=== PATIENT | male | born 1950 | race Caucasian/White ===

== ENCOUNTER → 2017-12-01 12:25 | Outpatient (CLI) | payer MEDICARE, MEDICAID, SELFPAY ==
--- NOTE | 2017-12-01 | DI.RAD.S_ITS ---
PROCEDURE: XR LUMBAR SPINE 2-3V INDICATIONS: LUMBAR SPINE PAIN TECHNIQUE: 3 views of the lumbar spine were acquired. COMPARISON: None. FINDINGS: Bones: 5 [id number] vertebrae are present. There is grade 1-2 anterolisthesis of L4 on L5. No vertebral body compression fractures. No suspicious bony lesions. Degenerative disc disease is present, severe at L5-S1, moderate at L3-L4 and L4-L5. There is severe facet arthropathy at L4-L5 and L5-S1. Osteopenia. Soft tissues: Overlying bowel gas pattern is normal. No suspicious soft tissue calcifications. IMPRESSION: 1. Severe degenerative disc and facet disease in lumbar spine. 2. Osteopenia. Dictated by: Pato Jones M.D. on 12/01/2017 at 17:55 Approved by: Pato Jones M.D. on 12/02/2017 at 10:01
--- NOTE | 2017-12-01 | DI.RAD.S_ITS ---
PROCEDURE: XR THORACIC SPINE 3V INDICATIONS: THORACIC PAIN TECHNIQUE: 3 views of the thoracic spine were acquired. COMPARISON: [facility], CR, XR LUMBAR SPINE 2-3V, 12/01/2017, 12:15. FINDINGS: Bones: Mild levo scoliosis. Mild loss of vertebral body height of T8. No suspicious bony lesions. There is mild degenerative disc disease scattered in the thoracic spine. 12 pairs of ribs are noted, and appear intact where visualized. Soft tissues: No paravertebral stripe thickening. There is a large hiatal hernia. IMPRESSION: 1. Mild compression deformity of T8. If clinical symptoms is acute, MRI is suggested for further evaluation. 2. levoscoliosis. L. Mild degenerative disc changes in thoracic spine. 4. Large hiatal hernia. Dictated by: Pato Jones M.D. on 12/01/2017 at 17:54 Approved by: Pato Jones M.D. on 12/02/2017 at 10:00
== END ==
PROVIDERS: Visit Provider Physician Assistant
DX: M51.36 Other intervertebral disc degeneration, lumbar region (principal); M54.5 Low back pain; M51.37 Other intervertebral disc degeneration, lumbosacral region; M51.34 Other intervertebral disc degeneration, thoracic region; M47.816 Spondylosis without myelopathy or radiculopathy, lumbar region; M47.817 Spondylosis without myelopathy or radiculopathy, lumbosacral region; M85.88 Other specified disorders of bone density and structure, other site; M41.84 Other forms of scoliosis, thoracic region; K44.9 Diaphragmatic hernia without obstruction or gangrene
CPT/HCPCS: 72072; 72100

== ENCOUNTER → 2018-01-11 10:46 | Outpatient (CLI) | payer MEDICARE, MEDICAID, SELFPAY ==
--- NOTE | 2018-01-11 10:50 | DI.MRI.S_ITS ---
PROCEDURE: MR LUMBAR SPINE WO CON INDICATIONS: COMPRESSION DEFORMITY TECHNIQUE: Noncontrast sagittal T1 spin echo and T2 fast echo, sagittal STIR, axial T1 and T2 fast spin echo through the lumbar spine. In cases with scoliosis, additional coronal T2 fast spin echo may be performed. COMPARISON: None. FINDINGS: Image quality: Excellent. Alignment and Curvature: Grade 1 anterolisthesis of L4 and L5. Trace anterolisthesis of L3 on L4.. Bone Marrow: Marrow is of normal overall signal. No acute vertebral body compression fractures. Spinal Cord: Conus medullaris terminates at the L1-L2 level. Visualized cord demonstrates normal signal and size. Paraspinous Soft Tissues: Large abdominal aortic aneurysm measuring at least 6.7 x 4.0 cm although not entirely included on exam [id number]. Numerous T2 hyperintense bilateral renal lesions presumably cysts although technically nonspecific L1-L2: Normal appearance. L2-L3: Normal appearance. L3-L4: Broad-based posterior disc bulge and bilateral facet arthropathy. Moderate canal stenosis. Effacement of the lateral recesses bilaterally although there is symmetric appearance. Moderate left and right foraminal narrowing.. L4-L5: Dorsal epidural lipomatosis is seen. There is severe canal stenosis. Bilateral facet arthropathy and broad-based posterior disc bulge. Partial effacement of both lateral recesses. Moderate left and severe right foraminal stenoses L5-S1: Broad-based posterior disc bulge and posterior annular fissure. Bilateral facet arthropathy. Mild canal stenosis. Mild effacement of both lateral recesses, with symmetric appearance. Moderate right and left foraminal narrowing. IMPRESSION: Large abdominal aortic aneurysm incidentally noted. Based on size, surgical referral is recommended. This was personally telephoned and discussed with the patient's referring clinician Genoveva OGDEN on 01/11/18. Lower lumbar degenerative disc disease, with severe canal stenosis at L4-L5, which is in part due to dorsal epidural lipomatosis. Bilateral foraminal stenoses as detailed above, most severe on the right at L4-L5. Diffuse lateral recess effacement, and L3-4, L4-L5 and L5-S1, although symmetric appearance Dictated by: Filippo Rubalcava M.D. on 01/11/2018 at 14:45 Approved by: Filippo Rubalcava M.D. on 01/11/2018 at 15:45
--- NOTE | 2018-01-11 10:50 | DI.MRI.S_ITS ---
PROCEDURE: MR THORACIC SPINE WO CON INDICATIONS: COMPRESSION DEFORMITY TECHNIQUE: Noncontrast sagittal T1 spine echo and T2 fast spin echo, sagittal STIR, axial T1 and T2 fast spin echo through the thoracic spine. COMPARISON: [facility], , MR LUMBAR SPINE WO CON, 01/11/2018, 12:59. FINDINGS: Image quality: Excellent. Alignment and Curvature: There is normal bony alignment. Bone Marrow: Marrow is of normal overall signal. No acute vertebral body compression fractures. There is lower cervical disc degeneration Spinal Cord: Visualized spinal cord is normal in size and signal. Paraspinous Soft Tissues: No paravertebral masses. Multiple bilateral presumed renal cysts although some of these are too small to characterize accurately. There is a large aortic aneurysm measuring approximately 5.5 x 5.5 cm Miscellaneous: On axial images, central canal and foramina appear widely patent at all scanned levels. IMPRESSION: No evidence of compression fracture. Mild height loss involving the T8 vertebral body however this could be physiologic. No associated marrow edema. Large abdominal aortic aneurysm. Recommend further evaluation with dedicated CT, and based on size, surgical referral is indicated. Dictated by: Filippo Rubalcava M.D. on 01/11/2018 at 14:03 Approved by: Filippo Rubalcava M.D. on 01/11/2018 at 14:41
== END ==
PROVIDERS: Visit Provider Physician Assistant
DX: M43.9 Deforming dorsopathy, unspecified (principal); I71.4 Abdominal aortic aneurysm, without rupture; M54.5 Low back pain; R29.890 Loss of height; M51.36 Other intervertebral disc degeneration, lumbar region; M48.061 Spinal stenosis, lumbar region without neurogenic claudication; E88.2 Lipomatosis, not elsewhere classified
CPT/HCPCS: 72146; 72148

== ENCOUNTER → 2018-01-18 08:40 | Outpatient (CLI) | payer MEDICARE, MEDICAID, SELFPAY ==
--- NOTE | 2018-01-18 | DI.CT.S_ITS ---
PROCEDURE: CT ANGIO ABDOMEN INDICATIONS: Abdominal aortic aneurysm, without rupture TECHNIQUE: After the administration of intravenous contrast, 2.5 mm thick sections acquired from the diaphragm to the symphysis. 10 mm maximum-intensity projection (MIP) reformats were then acquired. For radiation dose reduction, the following was used: automated exposure control. COMPARISON: [facility], MR, MR LUMBAR SPINE WO CON, 01/11/2018, 12:59. FINDINGS: Image quality: Excellent. Aorta: There is a long segmental area of aneurysmal dilatation of the aorta involving the infrarenal aorta into the aortic bifurcation, measuring up to 6.5 x 7.0 cm in maximal axial dimension superiorly and 6.5 cm in maximal axial dimension just above the bifurcation. Eccentric thrombus within the aneurysm is relatively prominent but the lumen is not narrowed to a hemodynamically significant degree in the area of maximal eccentric mural thrombus inferiorly. There is no sign of perianeurysmal fibrosis or aneurysm leak. No pseudoaneurysm is found. Mesenteric arteries: Celiac trunk, superior and inferior mesenteric arteries appear patent. Right pelvic arteries: Maximal axial dimension at the right common iliac artery of 9 mm. The right external iliac artery appears occluded by calcified atherosclerotic plaquing virtually at its origin. Left pelvic arteries: Maximal axial dimension of the left common iliac artery is 1.3 cm. And the left external iliac artery appears patent at its origin. Extravascular soft tissues: Lung bases are clear, emphysematous change is suspected. Heart size is normal. There is a large hiatal hernia behind the heart. Liver is normal in size and enhancement. Gallbladder appears normal. Biliary system is non dilated. Pancreas enhances normally. Spleen is normal in size and enhancement. No adrenal nodules. Kidneys are normal in size and enhancement, without hydronephrosis. There is renal cortical thinning bilaterally. There is an 8mm exophytic rounded structure at the posterior border of the left kidney middle third which appears higher in density than water, 13-14 Hounsfield units. An exophytic water density cyst is projecting inferiorly from the lower third of the left kidney. Non opacified bowel loops are normal in wall thickness and caliber. No free fluid or air. No retroperitoneal or mesenteric adenopathy. No ventral hernias. No suspicious bony lesions. No vertebral body compression fractures. IMPRESSION: 1. Large abdominal aortic aneurysm extending from the inferior margin of the renal arteries into the aortic bifurcation. This measures up to 7.0 cm in maximal axial dimension, shows no sign of perianeurysmal fibrosis or aneurysm leak, and vascular surgical consultation is recommended electively given the potential risk of spontaneous rupture of this aneurysm. 2. 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 3. Suspect COPD/emphysema. Large hiatal hernia behind the heart. 4. Renal cortical thinning bilaterally. Small 8mm rounded exophytic structure projecting from the posterior border of the left kidney is likely a proteinaceous cyst but followup attention to this area on subsequent CT or ultrasound studies is recommended to establish stability of size over time. Dictated by: Linus Chairez M.D. on 01/18/2018 at 9:22 Approved by: Linus Chairez M.D. on 01/18/2018 at 9:38
== END ==
PROVIDERS: Visit Provider Physician Assistant
DX: I71.4 Abdominal aortic aneurysm, without rupture (principal); K44.9 Diaphragmatic hernia without obstruction or gangrene; I74.5 Embolism and thrombosis of iliac artery
CPT/HCPCS: 74175; Q9967

== ENCOUNTER 2019-03-29 15:18 | Emergency (ER) | payer MEDICARE, MEDICAID, SELFPAY ==
[2019-03-29 15:23] VITALS: BP 168/82; PULSE 67; RESP 16; TEMP 36.4; O2SAT 99; BMI 24.7
[2019-03-29 15:57] LABS: Add Manual Diff / Slide Review NO; Basophils Absolute Auto 100 /uL (0-100); Basophils Percent Auto 0.9 % (0-2); Eosinophils Absolute Auto 200 /uL (0-450); Eosinophils Percent Auto 1.9 % (2-4); Hematocrit 37.9 % (41-53); Hemoglobin 12.4 g/dL (13.5-17.5); Lymphocytes Absolute Auto 2500 /uL (1100-4500); Lymphocytes Percent Auto 21.5 % (25-40); Mean Corpuscular HGB Conc 32.8 % (30-36); Mean Corpuscular Hemoglobin 28.2 PG (26-34); Mean Corpuscular Volume 86.1 fL (80-100); Monocytes Absolute Auto 1400 /uL (0-900); Monocytes Percent Auto 12.1 % (3-14); Neutrophils Absolute Auto 7300 /uL (1500-7000); Neutrophils Percent Auto 63.6 % (50-75); Platelet Count 245 X10^3/uL (150-400); Red Cell Distribution Width 14.7 % (11.6-14.8); White Blood Cell Count 11.5 X10^3/uL (4.5-11.0)
[2019-03-29 16:05] LABS: INR 1.1 (0.9-1.3); Prothrombin Time 12.4 SECONDS (10.1-12.7)
[2019-03-29 16:07] LABS: PTT Partial Thromboplastin Tim 37 SECONDS (26.4-36.2)
[2019-03-29 16:08] LABS: Alanine Aminotransferase 15 IU/L (<50); Albumin 4.7 g/dL (3.5-5.0); Albumin Globulin Ratio 1.3 (1.0-2.8); Alkaline Phosphatase 77 U/L (38-126); Aspartate Aminotransferase 28 IU/L (17-59); BUN Creatinine Ratio 20.8 (6-22); Bilirubin Total 0.4 mg/dL (0.2-1.3); Blood Urea Nitrogen 83 mg/dL (9-20); Calcium 9.8 mg/dL (8.4-10.2); Carbon Dioxide 22 mmol/L (22-32); Chloride 111 mmol/L (98-107); Estimated Glomerular Filt Rate 14.9 mL/min (>60); Globulin 3.7 g/dL (1.7-4.1); Glucose 110 mg/dL (80-110); HEMOLYSIS < 15 (0-50); Lipase 197 U/L (23-300); Potassium 4.5 mmol/L (3.4-5.1); Sodium 145 mmol/L (137-145); Total Protein 8.4 g/dL (6.3-8.2)
--- NOTE | 2019-03-29 16:24 | DI.US.S_ITS ---
PROCEDURE: US RETROPERITONEAL COMP INDICATIONS: ELEV CR, HX AAA TECHNIQUE: Real-time scanning was performed of the retroperitoneal organs, with image documentation. COMPARISON: None. FINDINGS: Kidneys: Kidneys are normal in size. Right kidney measures 9.4 cm long; left kidney measures 10.8 cm long. Right renal cortical thickness is 1.5 cm; left renal cortical thickness is 1.1 cm. renal cortices are echogenic bilaterally. There are multiple cysts in the right kidney, one of the largest measures 1.6 cm and the other measures 2.0 cm. There is a 9 mm nonobstructing stone. No hydronephrosis. The left kidney demonstrates multiple tiny cysts throughout the cortex. The largest cyst is simple and measures 3.6 x 2.3 x 2.6 cm there are no definite solid masses in either kidney. Pancreas: Not seen. Aorta: The proximal aorta is not well-seen. Mid and distal aorta is normal caliber, though mildly ectatic. Mid aorta measures 2.9 cm and distal aorta measures 2.5 cm in AP diameter. Iliac arteries: Proximal common iliac arteries are normal in caliber at 2.5 cm or less. IVC: Intrahepatic inferior vena cava is patent. Miscellaneous: No free abdominal fluid. Small post void residual at 39 cc. The filled urinary bladder has a volume of 315 cc. Neither ureteral jet was visible. IMPRESSION: 1. The visible abdominal aorta is ectatic, ranging from 2.5-2.9 cm in maximal diameter. 2. 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 3. Echogenic multicystic kidneys suggesting chronic medical renal disease. 4. Nonobstructing 1 mm right intrarenal calcification. 5. Small urinary bladder post void residual. Dictated by: Lien Rowe M.D. on 03/29/2019 at 18:36 Approved by: Lien Rowe M.D. on 03/29/2019 at 18:41
--- NOTE | 2019-03-29 19:17 | ED.ABDPAIN ---
HPI - Abdominal Pain <CALLI Murry - Last Filed: 03/29/19 20:19> General Chief Complaint: Abdominal Pain Stated Complaint: STOMACH PAIN ABDNORMAL BLOOD WORK Time Seen by Provider: 03/29/19 16:07 Source: patient Mode of arrival: Ambulatory Limitations: no limitations History of Present Illness HPI narrative: The patient is a 69-year-old male who presents with a chief complaint of abnormal lab work. He was referred from [facility]. He has history of a AAA repair. He states that he has had a history of kidney issues for the past year since his AAA repair. Lab work shows that his creatinine was 2.65 on August 12 of last year. His creatinine was 3.94 for on 03/24/2019. He complains of generalized abdominal pain over at least a month he denies any fevers nausea vomiting or current diarrhea. He did have a diarrhea episode few weeks ago for 1 day, but states that it self resolved. He states that he is anemic per his lab work, and chart review illustrate a hemoglobin of 12.1 and hematocrit of 37.4 on the of this month. Denies blood in his stool. He states that the clinic found trace blood in his urine Related Data Home Medications Medication Instructions Recorded Confirmed aspirin 81 mg PO DAILY 03/29/19 03/29/19 fentanyl 1 patch TRANSDERMAL Q72H 03/29/19 03/29/19 hydrochlorothiazide 12.5 mg PO DAILY 03/29/19 03/29/19 losartan 50 mg PO DAILY 03/29/19 03/29/19 metoprolol tartrate 25 mg PO BID 03/29/19 03/29/19 oxycodone-acetaminophen [Percocet] 0.5 tab PO Q6H PRN MDD 2 tabs 03/29/19 03/29/19 rosuvastatin 40 mg PO QPM 03/29/19 03/29/19 Allergies Allergy/AdvReac Type Severity Reaction Status Date / Time bupropion [From Wellbutrin] Allergy Severe Dizziness Verified 03/29/19 15:28 tramadol Allergy Severe kidney Verified 03/29/19 15:28 function Review of Systems <CALLI Murry - Last Filed: 03/29/19 20:19> Review of Systems Narrative: GENERAL: Denies chills, fatigue, malaise, fever, sweats. HEENT: Denies sinus pain, ear pain, sore throat, difficulty swallowing, dizziness. RESPIRATORY: Denies dyspnea, cough, wheezing, hemoptysis, sputum. CARDIOVASCULAR: Denies chest pain, palpitations, orthopnea, edema, GASTROINTESTINAL: See HPI :see HPI MUSCULOSKELETAL: denies weakness, joint pain, or bony pain SKIN: Denies rash, skin lesions, or other NEUROLOGIC: Denies weakness, headache, numbness, change in speech, confusion, seizures, incoordination. PSYCHIATRIC: No concerning psychosocial issues. 12 point review of systems is negative except for those stated above Patient History <CALLI Murry - Last Filed: 03/29/19 20:19> Medical History (Updated 03/29/19 @ 20:13 by CALLI Murry) Hypertension (Acute) Surgical History (Updated 03/29/19 @ 20:13 by CALLI Murry) S/P AAA repair (Acute) Substance Use Type: does not use Exam <CALLI Murry - Last Filed: 03/29/19 20:19> Narrative Exam Narrative: GENERAL: This is a well-nourished, well-developed patient, in no acute distress HEAD: Atraumatic. Normocephalic. No temporal or scalp tenderness. EYES: Pupils equal round and reactive. Extraocular motions intact. No scleral icterus. No injection or drainage. ENT: Nose without bleeding, purulent drainage or septal hematoma. Throat without erythema, tonsillar hypertrophy or exudate. Uvula midline. Airway patent. NECK: Trachea midline. No JVD or lymphadenopathy. Supple, nontender, no meningeal signs. CARDIOVASCULAR: Regular rate and rhythm RESPIRATORY: Clear to auscultation. Breath sounds equal bilaterally. No wheezes, rales, or rhonchi. No cough. No increased respiratory effort. No accessory muscle use. GASTROINTESTINAL: Abdomen soft, non-tender, nondistended. No hepato-splenomegaly, or palpable masses. No guarding. EXTREMITIES: No clubbing, cyanosis, or edema. No joint tenderness, effusion, or edema noted. BACK: Nontender without deformity or crepitance. No flank tenderness. NEURO: AOx3. Interactive, age appropriate SKIN: No rash or erythema on visible skin. Postoperative changes noted on abdomen. Initial Vital Signs Initial Vital Signs: Vital Signs Temperature 97.6 F 03/29/19 15:23 Pulse Rate 67 03/29/19 15:23 Respiratory Rate 16 03/29/19 15:23 Blood Pressure 168/82 H 03/29/19 15:23 Pulse Oximetry 99 03/29/19 15:23 <Shruthi Hassan DO - Last Filed: 04/07/19 01:16> Initial Vital Signs Initial Vital Signs: Vital Signs Temperature 97.6 F 03/29/19 15:23 Pulse Rate 67 03/29/19 15:23 Respiratory Rate 16 03/29/19 15:23 Blood Pressure 168/82 H 03/29/19 15:23 Pulse Oximetry 99 03/29/19 15:23 Course <CALLI Murry - Last Filed: 03/29/19 20:19> Orders Ordered: ED Orders 03/29/19 15:36 EKG-12 Lead Stat 03/29/19 15:51 Complete Blood Count AUTO DIFF Stat Comprehensive Metabolic Panel Stat Lipase Stat Partial Thromboplastin Time Stat Prothrombin Time INR Stat 03/29/19 16:24 US retroperitoneal comp Stat Vital Signs Vital signs: Vital Signs - 8 hr 03/29/19 15:23 03/29/19 20:04 Temperature 97.6 F Pulse Rate 67 79 Respiratory Rate 16 20 Blood Pressure 168/82 H 136/75 Pulse Oximetry 99 97 <Shruthi Hassan DO - Last Filed: 04/07/19 01:16> Orders Ordered: ED Orders 03/29/19 15:36 EKG-12 Lead Stat 03/29/19 15:51 Complete Blood Count AUTO DIFF Stat Comprehensive Metabolic Panel Stat Lipase Stat Partial Thromboplastin Time Stat Prothrombin Time INR Stat 03/29/19 16:24 US retroperitoneal comp Stat Vital Signs Vital signs: Vital Signs - 8 hr 03/29/19 15:23 03/29/19 20:04 Temperature 97.6 F Pulse Rate 67 79 Respiratory Rate 16 20 Blood Pressure 168/82 H 136/75 Pulse Oximetry 99 97 MDM - Abdominal Pain <CALLI Murry - Last Filed: 03/29/19 20:19> Lab Data Result diagrams: 03/29/19 15:51 03/29/19 15:51 Labs: Lab Results 03/29/19 03/29/19 03/29/19 Range/Units 15:51 15:51 15:51 WBC 11.5 H (4.5-11.0) X10^3/uL RBC 4.40 L (4.5-5.9) X10^6/uL Hgb 12.4 L (13.5-17.5) g/dL Hct 37.9 L (41-53) % MCV 86.1 (80-100) fL MCH 28.2 (26-34) PG MCHC 32.8 (30-36) % RDW 14.7 (11.6-14.8) % Plt Count 245 (150-400) X10^3/uL Neut % (Auto) 63.6 (50-75) % Lymph % (Auto) 21.5 L (25-40) % [place] % (Auto) 12.1 (3-14) % Eos % (Auto) 1.9 L (2-4) % Baso % (Auto) 0.9 (0-2) % Neut # (Auto) 7300 H (7273-7112) /uL Lymph # (Auto) 2500 (3567-3090) /uL [place] # (Auto) 1400 H (0-900) /uL Eos # (Auto) 200 (0-450) /uL Baso # (Auto) 100 (0-100) /uL PT 12.4 (10.1-12.7) SECONDS INR 1.1 (0.9-1.3) APTT 37 H (26.4-36.2) SECONDS Sodium 145 (137-145) mmol/L Potassium 4.5 (3.4-5.1) mmol/L Chloride 111 H (98-107) mmol/L Carbon Dioxide 22 (22-32) mmol/L BUN 83 H (9-20) mg/dL Creatinine 4.00 H (0.66-1.25) mg/dL Estimated GFR 14.9 L (>60) mL/min BUN/Creatinine Ratio 20.8 (6-22) Glucose 110 (80-110) mg/dL Calcium 9.8 (8.4-10.2) mg/dL Total Bilirubin 0.4 (0.2-1.3) mg/dL AST 28 (17-59) IU/L ALT 15 (<50) IU/L Alkaline Phosphatase 77 (38-126) U/L Total Protein 8.4 H (6.3-8.2) g/dL Albumin 4.7 (3.5-5.0) g/dL Globulin 3.7 (1.7-4.1) g/dL Albumin/Globulin Ratio 1.3 (1.0-2.8) Lipase 197 (23-300) U/L Point of care testing: Urine Dip Bedside Urine Glucose Negative Bedside Urine Bilirubin - Negative Bedside Urine Ketone - Negative Urine Specific [place] 1.025 Bedside Urine Occult Blood - Negative Bedside Urine pH 6.0 Bedside Urine Protein + 30 Bedside Urine Urobilinogen - Negative Bedside Urine Nitrite - Negative Bedside Urine Leukocytes - Negative Esterase Imaging Data US - abdomen: Radiologist's Impression: [address] [address] Ultrasound Report Signed Patient: Armen Knowles#: [id number] : 8Acct:[id number] Age/Sex: 69 / MDate of Service: 03/29/19 Loc: ED Accession Number: [id number] Procedure: US retroperitoneal comp Ordering Provider: Shruthi Bañuelos-BC PROCEDURE: US RETROPERITONEAL COMP INDICATIONS: ELEV CR, HX AAA TECHNIQUE: Real-time scanning was performed of the retroperitoneal organs, with image documentation. COMPARISON: None. FINDINGS: Kidneys: Kidneys are normal in size. Right kidney measures 9.4 cm long; left kidney measures 10.8 cm long. Right renal cortical thickness is 1.5 cm; left renal cortical thickness is 1.1 cm. renal cortices are echogenic bilaterally. There are multiple cysts in the right kidney, one of the largest measures 1.6 cm and the other measures 2.0 cm. There is a 9 mm nonobstructing stone. No hydronephrosis. The left kidney demonstrates multiple tiny cysts throughout the cortex. The largest cyst is simple and measures 3.6 x 2.3 x 2.6 cm there are no definite solid masses in either kidney. Pancreas: Not seen. Aorta: The proximal aorta is not well-seen. Mid and distal aorta is normal caliber, though mildly ectatic. Mid aorta measures 2.9 cm and distal aorta measures 2.5 cm in AP diameter. Iliac arteries: Proximal common iliac arteries are normal in caliber at 2.5 cm or less. IVC: Intrahepatic inferior vena cava is patent. Miscellaneous: No free abdominal fluid. Small post void residual at 39 cc. The filled urinary bladder has a volume of 315 cc. Neither ureteral jet was visible. IMPRESSION: 1. The visible abdominal aorta is ectatic, ranging from 2.5-2.9 cm in maximal diameter. 2. 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 3. Echogenic multicystic kidneys suggesting chronic medical renal disease. 4. Nonobstructing 1 mm right intrarenal calcification. 5. Small urinary bladder post void residual. Dictated by: Lien Rowe M.D. on 03/29/2019 at 18:36 Approved by: Lien Rowe M.D. on 03/29/2019 at 18:41 MDM Narrative Medical decision making narrative: The patient is a 69-year-old male who presents with a chief complaint of abnormal labs from outside provider. Repeat labs at this location do show slight anemia of hemoglobin at 12.5, elevated creatinine of 4. This is been an ongoing issue for the past several months and he has yet to be referred to Nephrology. The patient has no signs of urinary tract infection. Given that I cannot to a CT due to his elevated renal function, I did obtain ultrasound which shows concern of medical renal disease. The patient states that he would like to follow up with Nephrology through [facility] as he has had a surgeries at that location. His images were pushed to [facility], and I spoke with Dr. Snow who states that the patient is appropriate for outpatient follow-up with them, does not need transfer this time. Discussed at length with the patient stopping any nephrotoxic medications including NSAIDs, diuretics etcetera. Patient is okay with this and has no questions or concerns upon discharge. Discussed plan of care with Dr Hassan given patient complexity. Patient has no questions or concerns upon discharge and states understanding of return precautions as well as follow-up care. <Shruthi Hassan, DO - Last Filed: 04/07/19 01:16> Lab Data Labs: Lab Results 03/29/19 03/29/19 03/29/19 Range/Units 15:51 15:51 15:51 WBC 11.5 H (4.5-11.0) X10^3/uL RBC 4.40 L (4.5-5.9) X10^6/uL Hgb 12.4 L (13.5-17.5) g/dL Hct 37.9 L (41-53) % MCV 86.1 (80-100) fL MCH 28.2 (26-34) PG MCHC 32.8 (30-36) % RDW 14.7 (11.6-14.8) % Plt Count 245 (150-400) X10^3/uL Neut % (Auto) 63.6 (50-75) % Lymph % (Auto) 21.5 L (25-40) % [place] % (Auto) 12.1 (3-14) % Eos % (Auto) 1.9 L (2-4) % Baso % (Auto) 0.9 (0-2) % Neut # (Auto) 7300 H (5999-8339) /uL Lymph # (Auto) 2500 (6759-6014) /uL [place] # (Auto) 1400 H (0-900) /uL Eos # (Auto) 200 (0-450) /uL Baso # (Auto) 100 (0-100) /uL PT 12.4 (10.1-12.7) SECONDS INR 1.1 (0.9-1.3) APTT 37 H (26.4-36.2) SECONDS Sodium 145 (137-145) mmol/L Potassium 4.5 (3.4-5.1) mmol/L Chloride 111 H (98-107) mmol/L Carbon Dioxide 22 (22-32) mmol/L BUN 83 H (9-20) mg/dL Creatinine 4.00 H (0.66-1.25) mg/dL Estimated GFR 14.9 L (>60) mL/min BUN/Creatinine Ratio 20.8 (6-22) Glucose 110 (80-110) mg/dL Calcium 9.8 (8.4-10.2) mg/dL Total Bilirubin 0.4 (0.2-1.3) mg/dL AST 28 (17-59) IU/L ALT 15 (<50) IU/L Alkaline Phosphatase 77 (38-126) U/L Total Protein 8.4 H (6.3-8.2) g/dL Albumin 4.7 (3.5-5.0) g/dL Globulin 3.7 (1.7-4.1) g/dL Albumin/Globulin Ratio 1.3 (1.0-2.8) Lipase 197 (23-300) U/L Point of care testing: Urine Dip Bedside Urine Glucose Negative Bedside Urine Bilirubin - Negative Bedside Urine Ketone - Negative Urine Specific [place] 1.025 Bedside Urine Occult Blood - Negative Bedside Urine pH 6.0 Bedside Urine Protein + 30 Bedside Urine Urobilinogen - Negative Bedside Urine Nitrite - Negative Bedside Urine Leukocytes - Negative Esterase Discharge Plan Departure Patient Disposition: Home Clinical Impression: Creatinine elevation Discharge Date/Time: 03/29/19 20:04 Instructions: DI for Kidney Failure Activity Restrictions/Additional Instructions: As discussed, your kidney function has decreased. I spoke with Dr. Snow from [facility] nephrology. Your welcome to follow up with them. You can call them at [phone] In the meantime, please stop all medications that are toxic to kidney such as NSAIDs IUD ibuprofen and Aleve, diuretics etcetera Please come back to the emergency department for any acute concerns Please follow-up with primary care provider as well Prescriptions: No Action losartan 50 mg Tablet 50 mg PO DAILY RF: 0 fentanyl 50 mcg/hr Patch 72 Hour 1 patch TRANSDERMAL Q72H RF: 0 aspirin 81 mg Tablet,Delayed Release (Dr/Ec) 81 mg PO DAILY RF: 0 oxycodone-acetaminophen [Percocet] 2.5-325 mg Tablet 0.5 tab PO Q6H MDD 2 tabs PRN (Reason: pain) RF: 0 rosuvastatin 40 mg Tablet 40 mg PO QPM RF: 0 metoprolol tartrate 25 mg Tablet 25 mg PO BID RF: 0 hydrochlorothiazide 12.5 mg Tablet 12.5 mg PO DAILY RF: 0 Referrals: Genoveva Nava PA-C [Non-Staff] -
[2019-03-29 20:04] VITALS: BP 136/75; PULSE 79; RESP 20; O2SAT 97
--- NOTE | 2019-03-30 11:19 | PC.NURSE ---
pt called states that Dr garcia office wont make them an appt. states they don't have any information. This RN called and spoke with mar and she said they need labs, DI and provider notes. that is being faxed to the office at this time. called pt back and let them know it has been faxed so they can make there appt with dr. garcia, nephrology.
--- NOTE | 2019-03-30 11:23 | PC.NURSE ---
pts records from this visit was faxed to Dr. Smalls's office at [facility] per both doctors and patients request.
== END 2019-03-29 20:04 | disposition home or self-care (01) ==
PROVIDERS: Emergency Medicine; Emergency Provider Nurse Practitioner Family
DX: R79.89 Other specified abnormal findings of blood chemistry (principal); Z86.79 Personal history of other diseases of the circulatory system
CPT/HCPCS: 36415; 76770; 80053; 81003; 83690; 85025; 85610; 85730; 93005; 93010; 99284; 99285

== ENCOUNTER → 2019-06-01 09:06 | Outpatient (CLI) | payer MEDICARE, MEDICAID, SELFPAY ==
--- NOTE | 2019-06-01 | DI.MRI.S_ITS ---
PROCEDURE: MR LUMBAR SPINE WO CON INDICATIONS: Spinal stenosis, lumbar region TECHNIQUE: Noncontrast sagittal T1 spin echo and T2 fast echo, sagittal STIR, axial T1 and T2 fast spin echo through the lumbar spine. In cases with scoliosis, additional coronal T2 fast spin echo may be performed. COMPARISON: [facility], MR, MR LUMBAR SPINE WO CON, 01/11/2018, 12:59. [facility], CR, XR LUMBAR SPINE 2-3V, 12/01/2017, 12:15. [facility], US, US RETROPERITONEAL COMP, 03/29/2019, 17:07. FINDINGS: Image quality: Diagnostic, with note made of motion artifact. Alignment and Curvature: Mild grade 1 anterolisthesis is seen at the L4-L5 level. Associated pars defects are not seen. Bone Marrow: Marrow is of normal overall signal. No acute vertebral body compression fractures. Spinal Cord: Conus medullaris terminates at the L1 level. Visualized cord demonstrates normal signal and size. Paraspinous Soft Tissues: No paravertebral masses. There is partial visualization of the known abdominal aortic aneurysm with an endograft. A 2.5 cm left inferior cyst can be seen, with smaller renal cysts seen elsewhere. T12-L1: Bridging endplate osteophytes are seen. Mild generalized disc bulge is seen. No significant neural foraminal or central canal narrowing can be seen. L1-L2: Normal appearance. L2-L3: The disc height and disk signal are well-preserved. Mild generalized disc bulge is seen. Moderate bilateral neural foraminal narrowing is seen. No significant canal narrowing is seen. These imaging findings have progressed compared to the prior study. L3-L4: Moderate loss of disc height is seen. Loss of disc signal is seen. Moderate disc bulge is seen, with a central disc extrusion, with mild superior migration of the disc material, as on series 2 image 11. At least moderate facet hypertrophy is seen. There is at least moderate bilateral neural foraminal narrowing seen, left worse than right. At least moderate central canal narrowing is seen. Mild progression compared to 2018. L4-L5: The disc height is well-preserved. Loss of disc signal is seen at this level. Moderate disc bulge is seen at this level. Prominent facet hypertrophy is seen. There is moderate to severe right-sided and at least moderate left-sided neural foraminal narrowing seen. There is a degree of compression seen upon the exiting nerve roots. Moderate to severe central canal narrowing is seen. When comparison is made with the prior examination, these findings are similar. L5-S1: Moderate loss of disc height is seen. Loss of disc signal is seen. Moderate disc bulge is seen, with a central disc extrusion, with superior migration of disc material. There is an associated annular fissure, as on series 2 image 10. At least moderate facet hypertrophy is seen. There is at least moderate bilateral neural foraminal narrowing seen, right worse than left. Moderate central canal narrowing is seen. When comparison is made with the prior examination, these findings are similar. IMPRESSION: Multiple levels of cervical spine degenerative change are seen, which are similar to 2018, although mildly progressed at the L2-L3 level and the L3-L4 level. Dictated by: Giovanni Pringle M.D. on 06/01/2019 at 10:31 Approved by: Giovanni Pringle M.D. on 06/01/2019 at 10:39
== END ==
PROVIDERS: PCP Family Medicine; Referring Provider Acupuncturist; Visit Provider Acupuncturist
DX: M48.061 Spinal stenosis, lumbar region without neurogenic claudication (principal); M47.816 Spondylosis without myelopathy or radiculopathy, lumbar region; M43.16 Spondylolisthesis, lumbar region; N28.1 Cyst of kidney, acquired; I71.4 Abdominal aortic aneurysm, without rupture
CPT/HCPCS: 72148

== ENCOUNTER → 2019-09-08 13:22 | Outpatient (CLI) | payer MEDICARE, MEDICAID, SELFPAY ==
--- NOTE | 2019-09-08 | DI.MRI.S_ITS ---
PROCEDURE: MR LUMBAR SPINE WO CON INDICATIONS: Spinal stenosis, lumbar region without neurogenic TECHNIQUE: Noncontrast sagittal T1 spin echo and T2 fast echo, sagittal STIR, axial T1 and T2 fast spin echo through the lumbar spine. In cases with scoliosis, additional coronal T2 fast spin echo may be performed. COMPARISON: [facility], MR, MR LUMBAR SPINE WO CON, 01/11/2018, 12:59. [facility], CR, XR LUMBAR SPINE 2-3V, 12/01/2017, 12:15. [facility], MR, MR LUMBAR SPINE WO CON, 06/01/2019, 10:10. FINDINGS: Image quality: Excellent. Alignment and Curvature: 5 lumbar type vertebral bodies are present by plain film. Mild grade 1 anterolisthesis of L3 on L4 and L4 on L5. Bone Marrow: Marrow is of normal overall signal. No acute vertebral body compression fractures. Spinal Cord: Conus medullaris terminates at the L1-L2 disc space level. Visualized cord demonstrates normal signal and size. Paraspinous Soft Tissues: No paravertebral masses. Incompletely visualized aneurysm of the infrarenal abdominal aorta, measuring at least 41 mm. L1-L2: Mild bilateral facet hypertrophy. No significant canal, nor foraminal stenosis. No change. L2-L3: Mild disc desiccation and diffuse disc bulge. Mild bilateral facet hypertrophy. Mild canal stenosis. Mild bilateral foraminal stenosis. L3-L4: Moderate disc height loss and desiccation. Mild diffuse disc bulge. Mild facet and ligamentum hypertrophy. Mild epidural lipomatosis. Moderate canal stenosis. Moderate subarticular foraminal stenosis bilaterally. No change. L4-L5: Moderate disc height loss and desiccation. Mild diffuse disc bulge. Moderate facet hypertrophy bilaterally. Severe canal stenosis and moderate subarticular foraminal stenosis bilaterally. No change. L5-S1: Severe disc height loss and desiccation. Mild diffuse disc bulge with superimposed central disc extrusion, which extends superiorly within the anterior epidural space. Moderate bilateral facet hypertrophy. Mild canal stenosis. Moderate subarticular foraminal stenosis bilaterally. There is abutment of the right S1 nerve root within the lateral recess, without evidence of associated neural compression, nor deviation. No change. IMPRESSION: 1. Multilevel degenerative disc and facet disease, as well as ligamentum flavum hypertrophy and epidural lipomatosis. 2. Multilevel canal stenoses, worst at L4-L5, where there is severe canal stenosis present. 3. Multilevel foraminal stenoses, worst at L3-L4, L4-L5, and L5-S1, where there are moderate foraminal stenoses. 4. Disc extrusion at L5-S1, which abuts the right S1 nerve root, without associated neural compression, nor deviation. Recommend correlation with clinical symptoms to ascertain relevance of this finding. 5. Infrarenal abdominal aortic aneurysm. Dictated by: Sarita Trinidad M.D. on 09/08/2019 at 15:16 Approved by: Sarita Triniadd M.D. on 09/08/2019 at 15:21
== END ==
PROVIDERS: PCP Family Medicine; Referring Provider Family Medicine; Visit Provider Acupuncturist
DX: M48.061 Spinal stenosis, lumbar region without neurogenic claudication (principal); M48.07 Spinal stenosis, lumbosacral region; M51.36 Other intervertebral disc degeneration, lumbar region; M51.37 Other intervertebral disc degeneration, lumbosacral region; M51.27 Other intervertebral disc displacement, lumbosacral region; E88.2 Lipomatosis, not elsewhere classified; I71.4 Abdominal aortic aneurysm, without rupture
CPT/HCPCS: 72148

== ENCOUNTER → 2019-10-03 12:22 | Outpatient (CLI) | payer MEDICARE, MEDICAID, SELFPAY ==
--- NOTE | 2019-10-03 | DI.US.S_ITS ---
PROCEDURE: US ABD AORTA ANEURYSM SCREEN INDICATIONS: Abdominal aortic aneurysm, without rupture. Prior history of endo stent aortic aneurysm repair. TECHNIQUE: Real time scanning was performed of the aorta and iliac arteries, with image documentation. COMPARISON: [facility], CT, CT ANGIO ABDOMEN, 01/18/2018, 8:52. FINDINGS: Aorta: Proximal aortic diameter measures 3.0 cm. Mid-aorta measures 2.6 cm. Distal aortic diameter is 3.1 cm. Iliac arteries: Right common iliac artery measures 2.5 cm. Left common iliac artery measures 2.7 cm. IMPRESSION: With reference to the prior CT scanning from 01/18/18 the large [id number] abdominal aortic aneurysm has been markedly improved, and at the distal 3rd of the aorta there is only slight aneurysmal dilatation currently measuring 3.1 cm. Please note that this study does not accurately detect endo stent leak and if there is a clinical concern for such abnormality contrast-enhanced CT scanning should be obtained. 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 Dictated by: Linus Chairez M.D. on 10/03/2019 at 13:35 Approved by: Linus Chairez M.D. on 10/03/2019 at 13:46
== END ==
PROVIDERS: PCP Family Medicine; Referring Provider Student in an Organized Health Care Education/Training Program; Visit Provider Student in an Organized Health Care Education/Training Program
DX: I71.4 Abdominal aortic aneurysm, without rupture (principal)
CPT/HCPCS: 76706

== ENCOUNTER → 2020-06-13 09:56 | Outpatient (CLI) | payer MEDICARE, MEDICAID, SELFPAY ==
[2020-06-13 23:30] LABS: BUN Creatinine Ratio 14.2 (6-22); Blood Urea Nitrogen 80 mg/dL (9-20); Calcium 9.4 mg/dL (8.4-10.2); Carbon Dioxide 25 mmol/L (22-32); Chloride 112 mmol/L (98-107); Glucose 99 mg/dL (80-110); HEMOLYSIS < 15 (0-50); Phosphorous 6.3 mg/dL (2.3-3.7); Potassium 4.9 mmol/L (3.4-5.1); Sodium 150 mmol/L (137-145)
[2020-06-13 23:37] LABS: Add Manual Diff / Slide Review NO; Basophils Absolute Auto 100 /uL (0-100); Basophils Percent Auto 0.7 % (0-2); Eosinophils Absolute Auto 500 /uL (0-450); Eosinophils Percent Auto 3.8 % (2-4); Hematocrit 35.3 % (41-53); Hemoglobin 10.9 g/dL (13.5-17.5); Lymphocytes Absolute Auto 3400 /uL (1100-4500); Mean Corpuscular HGB Conc 30.9 % (30-36); Mean Corpuscular Hemoglobin 27.4 PG (26-34); Mean Corpuscular Volume 88.7 fL (80-100); Monocytes Absolute Auto 1700 /uL (0-900); Monocytes Percent Auto 13.3 % (3-14); Neutrophils Absolute Auto 6900 /uL (1500-7000); Neutrophils Percent Auto 55.2 % (50-75); Platelet Count 237 X10^3/uL (150-400); Red Blood Cell Count 3.98 X10^6/uL (4.5-5.9); Red Cell Distribution Width 15.2 % (11.6-14.8); White Blood Cell Count 12.5 X10^3/uL (4.5-11.0)
[2020-06-14 00:03] LABS: Hepatitis B Surface Antigen NEGATIVE s/c (NEGATIVE)
[2020-06-14 00:19] LABS: Hep C Virus Ab w/Reflex Quant NEGATIVE s/c (NEGATIVE)
[2020-06-15 01:47] LABS: Hepatitis B Surf AB Quant <3.1 mIU/mL (Immunity>9.9)
[2020-06-15 02:21] LABS: Hepatitis B Core Antibody Negative (Negative)
[2020-06-15 06:41] LABS: Calcium 8.9 mg/dL (8.6-10.2); Parathyroid Hormone, Intact 165 pg/mL (15-65)
== END ==
PROVIDERS: PCP Family Medicine; Visit Provider Specialist
DX: N18.5 Chronic kidney disease, stage 5 (principal); E21.1 Secondary hyperparathyroidism, not elsewhere classified; I77.6 Arteritis, unspecified; N18.6 End stage renal disease
CPT/HCPCS: 80048; 82310; 83735; 83970; 84100; 85025; 86704; 86706; 86803; 87340

== ENCOUNTER → 2020-07-19 12:00 | Outpatient (CLI) | payer MEDICARE, MEDICAID, SELFPAY ==
[2020-07-19 20:02] LABS: Appearance Urine UA CLEAR; Bacteria Urine None Seen; Bilirubin Urine UA NEGATIVE (NEGATIVE); Color Urine UA YELLOW; Glucose Urine UA NEGATIVE (Negative); Ketones Urine UA NEGATIVE (NEGATIVE); Leukocyte Esterase Urine UA TRACE (NEGATIVE); Nitrite Urine UA NEGATIVE (Negative); Occult Blood Urine UA TRACE-INTACT (Negative); Protein Urine UA TRACE (Negative); Urobilinogen Urine UA 0.2 E.U./dL (0.2); pH Urine UA 5.5 (4.5-8.0)
[2020-07-19 20:18] LABS: Add Manual Diff / Slide Review NO; Basophils Absolute Auto 0 /uL (0-100); Basophils Percent Auto 0.4 % (0-2); Eosinophils Absolute Auto 400 /uL (0-450); Eosinophils Percent Auto 3.7 % (2-4); Hematocrit 33.4 % (41-53); Hemoglobin 10.6 g/dL (13.5-17.5); Lymphocytes Absolute Auto 2700 /uL (1100-4500); Lymphocytes Percent Auto 27.3 % (25-40); Mean Corpuscular HGB Conc 31.7 % (30-36); Mean Corpuscular Hemoglobin 27.6 PG (26-34); Mean Corpuscular Volume 87.3 fL (80-100); Monocytes Absolute Auto 1400 /uL (0-900); Monocytes Percent Auto 14.1 % (3-14); Neutrophils Absolute Auto 5400 /uL (1500-7000); Neutrophils Percent Auto 54.5 % (50-75); Platelet Count 241 X10^3/uL (150-400); Red Blood Cell Count 3.83 X10^6/uL (4.5-5.9); Red Cell Distribution Width 15.4 % (11.6-14.8); White Blood Cell Count 9.9 X10^3/uL (4.5-11.0)
[2020-07-19 20:33] LABS: Alanine Aminotransferase 19 IU/L (<50); Albumin Globulin Ratio 1.4 (1.0-2.8); Alkaline Phosphatase 94 U/L (38-126); Aspartate Aminotransferase 29 IU/L (17-59); BUN Creatinine Ratio 15.2 (6-22); Bilirubin Total 0.2 mg/dL (0.2-1.3); Blood Urea Nitrogen 67 mg/dL (9-20); Calcium 9.6 mg/dL (8.4-10.2); Carbon Dioxide 15 mmol/L (22-32); Chloride 116 mmol/L (98-107); Estimated Glomerular Filt Rate 13.3 mL/min (>60); Globulin 2.9 g/dL (1.7-4.1); Glucose 108 mg/dL (80-110); HEMOLYSIS < 15 (0-50); Phosphorous 4.9 mg/dL (2.3-3.7); Potassium 5.1 mmol/L (3.4-5.1); Sodium 145 mmol/L (137-145); Total Protein 6.9 g/dL (6.3-8.2)
[2020-07-19 20:45] LABS: Culture Indicated Urine Cult Not Indicated; Hyaline Casts Urine 1-5/LPF; RBC Urine 0-1/HPF (0-5/HPF); Squamous Epithelial Cell Urine 1-5 /HPF (0-5/HPF); WBC Urine 1-5/HPF (0-5/HPF)
[2020-07-19 21:33] LABS: Creatinine Urine Random 47.7 mg/dL; Protein (Total) Urine Random 37 mg/dL (0-12); Protein Creatinine Ratio Urine 0.77 GRAM/24H
[2020-07-21 10:07] LABS: Calcium 8.3 mg/dL (8.6-10.2); Parathyroid Hormone, Intact 88 pg/mL (15-65)
[2020-07-29 15:45] LABS: 25 hydroxy Vitamin D3 44 ng/mL (.)
== END ==
PROVIDERS: PCP Physician Assistant; Visit Provider Specialist
DX: N18.4 Chronic kidney disease, stage 4 (severe) (principal); I10 Essential (primary) hypertension; E78.5 Hyperlipidemia, unspecified; D62 Acute posthemorrhagic anemia; I73.9 Peripheral vascular disease, unspecified
CPT/HCPCS: 80053; 81001; 82306; 82310; 82570; 83970; 84100; 84156; 85025

== ENCOUNTER → 2020-09-12 11:12 | Outpatient (CLI) | payer MEDICARE, MEDICAID, SELFPAY ==
[2020-09-17 18:36] LABS: 25 hydroxy Vitamin D3 42 ng/mL (.)
== END ==
PROVIDERS: PCP Physician Assistant; Visit Provider Specialist
DX: N18.4 Chronic kidney disease, stage 4 (severe) (principal)
CPT/HCPCS: 82306

== ENCOUNTER → 2020-11-28 10:17 | Outpatient (CLI) | payer MEDICARE, MEDICAID, SELFPAY ==
[2020-11-28 20:06] LABS: Alanine Aminotransferase 15 IU/L (<50); Albumin 4.1 g/dL (3.5-5.0); Albumin Globulin Ratio 1.4 (1.0-2.8); Alkaline Phosphatase 72 U/L (38-126); Aspartate Aminotransferase 21 IU/L (17-59); BUN Creatinine Ratio 17.8 (6-22); Bilirubin Total 0.3 mg/dL (0.2-1.3); Blood Urea Nitrogen 88 mg/dL (9-20); Calcium 9.9 mg/dL (8.4-10.2); Carbon Dioxide 23 mmol/L (22-32); Chloride 114 mmol/L (98-107); Estimated Glomerular Filt Rate 11.6 mL/min (>60); Globulin 2.9 g/dL (1.7-4.1); Glucose 103 mg/dL (80-110); HEMOLYSIS < 15 (0-50); Magnesium 2.2 mg/dL (1.6-2.3); Phosphorous 4.9 mg/dL (2.3-3.7); Potassium 5.2 mmol/L (3.4-5.1); Sodium 147 mmol/L (137-145)
[2020-11-28 20:40] LABS: Add Manual Diff / Slide Review NO; Basophils Absolute Auto 100 /uL (0-100); Basophils Percent Auto 0.4 % (0-2); Eosinophils Absolute Auto 300 /uL (0-450); Eosinophils Percent Auto 2.1 % (2-4); Hematocrit 32.7 % (41-53); Hemoglobin 10.2 g/dL (13.5-17.5); Lymphocytes Absolute Auto 2400 /uL (1100-4500); Lymphocytes Percent Auto 15.9 % (25-40); Mean Corpuscular HGB Conc 31.2 % (30-36); Mean Corpuscular Hemoglobin 27.2 PG (26-34); Mean Corpuscular Volume 87.2 fL (80-100); Monocytes Absolute Auto 1800 /uL (0-900); Monocytes Percent Auto 11.9 % (3-14); Neutrophils Absolute Auto 10400 /uL (1500-7000); Neutrophils Percent Auto 69.7 % (50-75); Platelet Count 266 X10^3/uL (150-400); Red Blood Cell Count 3.75 X10^6/uL (4.5-5.9); Red Cell Distribution Width 15.7 % (11.6-14.8); White Blood Cell Count 14.9 X10^3/uL (4.5-11.0)
[2020-11-29 16:13] LABS: Calcium 9.8 mg/dL (8.6-10.2); Parathyroid Hormone, Intact 67 pg/mL (15-65)
== END ==
PROVIDERS: PCP Physician Assistant; Visit Provider Specialist
DX: E21.1 Secondary hyperparathyroidism, not elsewhere classified (principal); N18.4 Chronic kidney disease, stage 4 (severe)
CPT/HCPCS: 80053; 82310; 83735; 83970; 84100; 85025

== ENCOUNTER → 2021-01-25 09:02 | Outpatient (CLI) | payer MEDICARE, MEDICAID, SELFPAY ==
--- NOTE | 2021-01-25 | DI.CT.S_ITS ---
PROCEDURE: CT SINUS SCREEN WO CON INDICATIONS: Chronic pansinusitis TECHNIQUE: Noncontrast 3.0 mm axial images acquired from the frontal sinuses to the mid-sella, with coronal and sagittal reformats. For radiation dose reduction, the following was used: automated exposure control, adjustment of mA and/or kV according to patient size. COMPARISON: None. FINDINGS: Image quality: Excellent. Maxillary Sinuses: No bony remodeling or destruction. Sinuses are clear. Ethmoid Air Cells: No bony remodeling or destruction. Sinuses are clear. Sphenoid Sinuses: No bony remodeling or destruction. Sinuses are clear. Frontal Sinuses: No bony remodeling or destruction. Sinuses are clear. Ostiomeatal Complexes: Ostiomeatal complexes are patent, yet they are mildly constitutionally narrowed, with bilateral Kelsey cells. Miscellaneous: Visualized intra-orbital contents are normal. No [place] or paradoxical turbinate curvature. There is minimal to mild rightward nasal septal deviation. Atherosclerotic calcification is noted. There is a left cheek subcutaneous nodule seen, as on series 3, image 4 that measures 14 mm. IMPRESSION: No significant active paranasal sinus disease can be seen. Mildly constitutionally narrowed ostiomeatal complexes, with bilateral Kelsey cells. Left cheek subcutaneous nodule measuring 14 mm. Please correlate with known patient history and physical examination findings. Dictated by: Giovanni Pringle M.D. on 01/25/2021 at 9:06 Approved by: Giovanni Pringle M.D. on 01/25/2021 at 9:07
== END ==
PROVIDERS: PCP Physician Assistant; Referring Provider Otolaryngology; Visit Provider Otolaryngology
DX: J32.4 Chronic pansinusitis (principal); R22.0 Localized swelling, mass and lump, head
CPT/HCPCS: 70486

== ENCOUNTER → 2021-02-22 11:27 | Outpatient (CLI) | payer MEDICARE, MEDICAID, SELFPAY ==
[2021-02-22 18:44] LABS: Hematocrit 30.4 % (41-53); Hemoglobin 9.7 g/dL (13.5-17.5); Mean Corpuscular Hemoglobin 27.4 PG (26-34); Mean Corpuscular Volume 85.7 fL (80-100); Platelet Count 244 X10^3/uL (150-400); Red Blood Cell Count 3.55 X10^6/uL (4.5-5.9); Red Cell Distribution Width 16.1 % (11.6-14.8)
[2021-02-22 19:01] LABS: Alanine Aminotransferase 17 IU/L (<50); Albumin 4.3 g/dL (3.5-5.0); Albumin Globulin Ratio 1.4 (1.0-2.8); Alkaline Phosphatase 55 U/L (38-126); Aspartate Aminotransferase 23 IU/L (17-59); BUN Creatinine Ratio 12.1 (6-22); Bilirubin Total 0.3 mg/dL (0.2-1.3); Calcium 9.1 mg/dL (8.4-10.2); Carbon Dioxide 16 mmol/L (22-32); Chloride 117 mmol/L (98-107); Estimated Glomerular Filt Rate 5.5 mL/min (>60); Globulin 3.1 g/dL (1.7-4.1); Glucose 107 mg/dL (80-110); HEMOLYSIS < 15 (0-50); Potassium 4.7 mmol/L (3.4-5.1); Sodium 151 mmol/L (137-145); Total Protein 7.4 g/dL (6.3-8.2)
[2021-02-22 19:07] LABS: Blood Urea Nitrogen 113 mg/dL (9-20); Phosphorous 9.7 mg/dL (2.3-3.7)
[2021-02-22 19:41] LABS: Appearance Urine UA CLEAR; Bilirubin Urine UA NEGATIVE (NEGATIVE); Color Urine UA YELLOW; Glucose Urine UA NEGATIVE (Negative); Ketones Urine UA NEGATIVE (NEGATIVE); Leukocyte Esterase Urine UA NEGATIVE (NEGATIVE); Nitrite Urine UA NEGATIVE (Negative); Occult Blood Urine UA 2+ (Negative); Protein Urine UA 2+ (Negative); Urobilinogen Urine UA 0.2 E.U./dL (0.2); pH Urine UA 5.5 (4.5-8.0)
[2021-02-22 19:48] LABS: Bacteria Urine None Seen; Calcium Oxalate Crystals Urine Few; Culture Indicated Urine Cult Not Indicated; Other Crystals Urine Trace Amorphous; RBC Urine 1-5/HPF (0-5/HPF); Squamous Epithelial Cell Urine None Seen (0-5/HPF); WBC Urine 1-5/HPF (0-5/HPF)
[2021-02-22 19:49] LABS: Mucus Urine 1+ (Negative)
== END ==
PROVIDERS: PCP Physician Assistant; Visit Provider Specialist
DX: N18.4 Chronic kidney disease, stage 4 (severe) (principal); I77.6 Arteritis, unspecified; N18.5 Chronic kidney disease, stage 5
CPT/HCPCS: 80053; 81001; 83516; 84100; 85027; 86255

== ENCOUNTER → 2021-06-19 13:12 | Outpatient (CLI) | payer MEDICARE, MEDICAID, SELFPAY ==
--- NOTE | 2021-06-19 | DI.RAD.S_ITS ---
PROCEDURE: XR HIP W PEL IF DONE BILAT 2V INDICATIONS: RIGHT HIP PAIN TECHNIQUE: AP pelvis with lateral view(s) of the bilateral hip(s). COMPARISON: [facility], JOHN, XR PELVIS W LATERAL HIP RT, 02/13/2015, 14:25. FINDINGS: Bones: No fractures or dislocations. Pelvic ring appears intact. Mild joint space loss with periarticular osteophytosis. No widening of the pubic symphysis. Soft tissues: The visualized bowel gas pattern is normal. No suspicious soft tissue calcifications. IMPRESSION: Bilateral hip degeneration as detailed above. Dictated by: Chance Burns M.D. on 06/19/2021 at 15:35 Approved by: Chance Burns M.D. on 06/19/2021 at 15:36
--- NOTE | 2021-06-19 13:19 | DI.MRI.S_ITS ---
PROCEDURE: MR ANKLE RT WO CON INDICATIONS: Right achilles tenderness just proximal to calcaneal inser TECHNIQUE: Noncontrast sagittal T1 spin echo and T2 fast spin echo with fat saturation, axial proton density fast spin echo and T2 fast spin echo with fat saturation, coronal T1 spin echo and T2 fast spin echo with fat saturation through the ankle/hindfoot. COMPARISON: [facility] ([place]), CR, XR ANKLE RT MIN 3V, 06/11/2021, 8:28. FINDINGS: Image quality: Excellent. Bones and joints: No bone marrow contusions or fractures. No osteochondral injuries of the talar dome. Small tibiotalar joint effusion with prominent anterior synovial fold. Medial structures: The posterior tibialis, flexor digitorum longus, and flexor hallucis longus tendons are intact. The posterior tibial neurovascular bundle appears normal within the tarsal tunnel, without extrinsic mass effect. The deltoid and spring ligaments appear intact. Lateral structures: The anterior talofibular, calcaneofibular, and posterior talofibular ligaments appear intact. More superiorly, the anterior and posterior tibiofibular ligaments appear intact, as is the intermalleolar ligament. The tibiofibular syndesmosis is normal in width at 2 mm or less. The peroneus longus and brevis tendons demonstrate normal location and morphology. The sinus tarsi demonstrates normal fatty signal. Patchy T2 hyperintense signal is seen within the sinus tarsi. Visualized sinus tarsi components (cervical ligament, interosseous talocalcaneal ligament, roots of the inferior extensor retinaculum) appear normal. Anterior structures: The tibialis anterior, extensor hallucis longus, and extensor digitorum longus tendons appear intact. The dorsal talonavicular ligament appears intact. Posterior and plantar structures: Achilles tendon is intact. Small foci of T2 or hyperintense signal within the distal Achilles, which may reflect tendinopathy. Medial and lateral bands of the plantar fascia are of normal thickness. No abductor digiti quinti muscle atrophy to suggest [place] neuropathy. Diffuse soft tissue edema. IMPRESSION: 1. Tibiotalar joint effusion with prominent anterior synovial fold. 2. Diffuse edema. 3. Tendinopathy in the distal Achilles. 4. Mild edema within the sinus tarsi. Dictated by: Chance Burns M.D. on 06/19/2021 at 15:36 Approved by: Chance Burns M.D. on 06/19/2021 at 15:48
== END ==
PROVIDERS: PCP Physician Assistant; Referring Provider Acupuncturist; Visit Provider Physician Assistant
DX: M76.60 Achilles tendinitis, unspecified leg (principal); M16.0 Bilateral primary osteoarthritis of hip; M25.551 Pain in right hip
CPT/HCPCS: 73521; 73721

== ENCOUNTER → 2021-10-10 12:03 | Outpatient (CLI) | payer MEDICARE, MEDICAID, SELFPAY ==
[2021-10-10 20:03] LABS: Cholesterol 122 mg/dL (140-199); HDL Cholesterol 43 mg/dL (40-60); LDL Cholesterol Calculated 47 mg/dL (<100); Triglycerides 158 mg/dL (35-150)
[2021-10-10 20:15] LABS: LDL Cholesterol Direct 50 mg/dL (<100)
== END ==
PROVIDERS: PCP Physician Assistant; Visit Provider Nurse Practitioner
DX: E78.2 Mixed hyperlipidemia (principal); I25.10 Atherosclerotic heart disease of native coronary artery without angina pectoris; I48.91 Unspecified atrial fibrillation
CPT/HCPCS: 80061; 83721